=== PATIENT | female | born 1985 | race Caucasian/White ===

== ENCOUNTER 2019-10-01 05:13 | Inpatient (IN) | payer OTHER ==
[2019-10-01] MEDS ORDERED: Oxytocin/Lactated Ringers 20 UNIT/1,000 ML BAG ONE (05:20)
[2019-10-01] MEDS ORDERED: Nalbuphine 10 MG/ML Syringe IVPUSH PRN (05:34)
[2019-10-01] MEDS ORDERED: Sodium Chloride 0.9% 10 ML Syringe FLUSH PRN (05:34)
[2019-10-01] MEDS ORDERED: Oxytocin/Lactated Ringers 20 UNIT/1,000 ML BAG IV SCH (05:45)
[2019-10-01] MEDS ORDERED: Lactated Ringers 1,000 ML IV SCH (05:45)
--- NOTE | 2019-10-01 05:52 | PCM.LDHP ---
L&D History of Present Illness - General Date of Service: 10/01/19 Admit Problem/Dx: Patient Status Order with Admit Dx/Problem 10/01/19 05:34 Patient Status [ADT] Routine Admission Diagnosis/Problem Admission Diagnosis/Problem Source of Information: Patient History Limitations: Reports: No Limitations - History of Present Illness Introduction:: 34-year-old -0-0-4 ANGELA 10/15/2019 at gestational age of 38 weeks 0 days presents labor and delivery completely dilated. Patient delivered rapidly after admission to labor and delivery. I was present and delivered the patient. GBS -09/19/2019 03/29/2019 blood type O- antibody screen negative, hemoglobin/hematocrit 13.9 39.9 platelets 269,000. Rubella immune. Serology nonreactive. Urine culture mixed hallie. Hepatitis B surface antigen and HIV negative. GC chlamydia probe negative. 07/17/2019 hemoglobin/hematocrit 12.9/38.1 platelets 300,001-hour OB glucose screen 134 antibody screen negative D immunoglobulin given 07/17/2019. 09/17/2019 group B strep negative Improves with: Reports: None Worsens with: Reports: None Associated Symptoms: Reports: N - Related Data Allergies/Adverse Reactions: Allergies Allergy/AdvReac Type Severity Reaction Status Date / Time No Known Allergies Allergy Verified 10/01/19 05:34 Home Medications: Home Meds Pnv No.95/Ferrous Fum/Folic AC [ Tablet] 1 each PO DAILY 12/20/13 [History] Acetaminophen [Tylenol] 650 mg PO Q4H PRN tablet 03/22/18 [Rx] Ibuprofen [Motrin] 600 mg PO Q4H PRN tablet 03/22/18 [Rx] Past Medical History HEENT History: Reports: None Gastrointestinal History: Reports: GERD, Other (See Below) Other Gastrointestinal History: Heart burn with [employer] History: Reports: Endocrine/Metabolic History: Reports: Diabetes, Gestational - Infectious Disease History Infectious Disease History: Reports: Chicken Pox - Past Surgical History HEENT Surgical History: Reports: LASIK, Naso-Sinus Surgery, Other (See Below) Social & Family History - Family History Family Medical History: Noncontributory - Caffeine Use Caffeine Use: Reports: None H&P Review of Systems - Review of Systems: Review Of Systems: See Below General: Reports: No Symptoms HEENT: Reports: No Symptoms Pulmonary: Reports: No Symptoms Cardiovascular: Reports: No Symptoms Gastrointestinal: Reports: No Symptoms Genitourinary: Reports: No Symptoms Musculoskeletal: Reports: No Symptoms Skin: Reports: No Symptoms Psychiatric: Reports: No Symptoms Neurological: Reports: No Symptoms Hematologic/Lymphatic: Reports: No Symptoms Immunologic: Reports: No Symptoms L&D Exam - Exam Exam: See Below - Vital Signs Weight: 220 lb - OB Specific Fundal Height In cm: 38 Contraction Duration (sec): 60 Contraction Frequency (min): 2 Contraction Intensity: Strong Movement: Active Heart Tones: Present Heart Tones per Min: 140 Heart Rate (FHR) Variability: Moderate (6-25 bmp) Presentation: Vertex - Gutierrez Score Gutierrez Score Cervix Position: Anterior Gutierrez Score Consistency: Soft Gutierrez Score Effacement: >80% Gutierrez Score Dilation: > 5 cm Gutierrez Score 's Station: +1, +2 Gutierrez Score Total: 13 - Exam General: Alert, Oriented HEENT: Conjunctiva Clear, Mucosa Moist & [place], Pupils Equal Neck: Supple, Trachea Midline Lungs: Clear to Auscultation, Normal Respiratory Effort Cardiovascular: Regular Rate, Regular Rhythm GI/Abdominal Exam: Soft, Non-Tender Genitourinary: Normal external exam Extremities: Normal Inspection, Non-Tender, No Pedal Edema, Normal Capillary Refill Skin: Warm, Dry, Intact Psychiatric: Alert, Normal Affect, Normal Mood - Problem List (1) 38 weeks gestation of SNOMED Code(s): 23802057 ICD Code: Z3A.38 - 38 WEEKS GESTATION OF Status: Acute Current Visit: Yes (2) Encounter for full-term uncomplicated delivery SNOMED Code(s): 271039303 ICD Code: O80 - ENCOUNTER FOR FULL-TERM UNCOMPLICATED DELIVERY Status: Acute Current Visit: Yes Problem List Initiated/Reviewed/Updated: No Orders Last 24hrs: Active Orders 24 hr Category Date Time Status Patient Status [ADT] Routine ADT 10/01/19 05:34 Active Activity as Tolerated [RC] PFP Care 10/01/19 05:34 Active Communication Order [RC] ASDIRECTED Care 10/01/19 05:34 Active Heart Tones [RC] ASDIRECTED Care 10/01/19 05:34 Active Non Stress Test [RC] PER UNIT ROUTINE Care 10/01/19 05:34 Active Notify Provider [RC] PFP Care 10/01/19 05:34 Active Notify Provider [RC] PRN Care 10/01/19 05:34 Active Peripheral IV Care [RC] . DIRECTED Care 10/01/19 05:34 Active Vital Signs [RC] PER UNIT ROUTINE Care 10/01/19 05:34 Active RAPID PLASMA REAGIN,RPR [CHEM] Routine Lab 10/01/19 05:34 Ordered Lactated Ringers [Ringers, Lactated] 1,000 ml Med 10/01/19 05:45 Active IV ASDIRECTED Nalbuphine [Nubain] Med 10/01/19 05:34 Active 10 mg IVPUSH Q2H PRN Oxytocin/Lactated Ringers [Pitocin in LR 20 Units/1,000 Med 10/01/19 05:45 Active ML] 20 unit in 1,000 ml IV .CONTINUOUS Sodium Chloride 0.9% [Saline Flush] Med 10/01/19 05:34 Active 10 ml FLUSH ASDIRECTED PRN Electronic Heart Tones Ext w TOCO [WOMSER] Oth 10/01/19 05:34 Ordered Routine Electronic Heart Tones Internal [WOMSER] Per Unit Oth 10/01/19 05:34 Ordered Routine Peripheral IV Insertion Adult [OM.PC] Routine Oth 10/01/19 05:34 Ordered Resuscitation Status Routine Resus Stat 10/01/19 05:34 Ordered Medication Orders Lactated Ringer's (Ringers, Lactated) 1,000 mls @ 100 mls/hr IV ASDIRECTED FERNANDO Oxytocin/Lactated Ringer's (Pitocin In Lr 20 Units/1,000 Ml) 20 unit in 1,000 mls @ 100 mls/hr IV .CONTINUOUS FERNANDO Nalbuphine HCl (Nubain) 10 mg IVPUSH Q2H PRN PRN Reason: Pain Sodium Chloride (Saline Flush) 10 ml FLUSH ASDIRECTED PRN PRN Reason: Keep Vein Open Assessment/Plan Comment:: Patient admitted to labor and delivery at 0514 hrs. arrived at 0523 hrs. and patient delivered at 0525 hrs.
--- NOTE | 2019-10-01 05:59 | PCM.DEL ---
L & D Note - General Info Date of Service: 10/01/19 Mother's Due Date: 10/15/19 - Delivery Note Labor: Spontaneous Delivery Outcome: Livebirth (Male liveborn at 0525 hrs. on 10/01/2019 weighing 3620 g 8 pounds, Apgars 8/9 OA) Delivery Method: Spontaneous Vaginal Delivery-Single Delivery Mode: Spontaneous Presentation: Right Occiput Anterior (LIANNE) Nuchal Cord: None Prep: Povidone-Iodine (Betadine Anesthesia Type: None Episiotomy Type: None Laceration: None Placenta: Intact, Spontaneous (Spontaneously delivered at 0527 hrs. on 10/01/2019 examined intact) Cord: 3 Vessels Estimated Blood Loss: 250 Resuscitation Needed: No : Suctioned, Bulb Syringe, Stimulated, Warmed, [place] Used, Warmer Used Provider: León Regan Score 1 min: 8 Score 5 min: 9 - General Info Date of Service: 10/01/19 Functional Status: Reports: Pain Controlled - Review of Systems General: Reports: No Symptoms HEENT: Reports: No Symptoms Pulmonary: Reports: No Symptoms Cardiovascular: Reports: No Symptoms Gastrointestinal: Reports: No Symptoms Genitourinary: Reports: No Symptoms Musculoskeletal: Reports: No Symptoms Skin: Reports: No Symptoms Neurological: Reports: No Symptoms Psychiatric: Reports: No Symptoms - Patient Data Weight - Most Recent: 220 lb Med Orders - Current: Current Medications Lactated Ringer's (Ringers, Lactated) 1,000 mls @ 100 mls/hr IV ASDIRECTED FERNANDO Oxytocin/Lactated Ringer's (Pitocin In Lr 20 Units/1,000 Ml) 20 unit in 1,000 mls @ 100 mls/hr IV .CONTINUOUS FERNANDO Nalbuphine HCl (Nubain) 10 mg IVPUSH Q2H PRN PRN Reason: Pain Sodium Chloride (Saline Flush) 10 ml FLUSH ASDIRECTED PRN PRN Reason: Keep Vein Open Discontinued Medications Oxytocin/Lactated Ringer's (Pitocin In Lr 20 Units/1,000 Ml) Confirm Administered Dose 20 unit in 1,000 mls @ as directed .ROUTE .STK-MED ONE Stop: 10/01/19 05:21 - Exam General: Alert, Oriented HEENT: Pupils Equal, Mucous Membr. Moist/[place] Neck: Supple Lungs: Clear to Auscultation, Normal Respiratory Effort Cardiovascular: Regular Rate, Regular Rhythm GI/Abdominal Exam: Soft (Female) Exam: Normal External Exam Extremities: Normal Inspection, Non-Tender, No Pedal Edema, Normal Capillary Refill Skin: Warm, Dry, Intact Neurological: No New Focal Deficit Psy/Mental Status: Alert, Normal Affect, Normal Mood - Problem List & Annotations (1) 38 weeks gestation of SNOMED Code(s): 15109145 Code(s): Z3A.38 - 38 WEEKS GESTATION OF Status: Acute Current Visit: Yes (2) Encounter for full-term uncomplicated delivery SNOMED Code(s): 457281557 Code(s): O80 - ENCOUNTER FOR FULL-TERM UNCOMPLICATED DELIVERY Status: Acute Current Visit: Yes - Problem List Review Problem List Initiated/Reviewed/Updated: No - My Orders Last 24 Hours: My Active Orders 10/01/19 05:34 Patient Status [ADT] Routine Activity as Tolerated [RC] PFP Communication Order [RC] ASDIRECTED Heart Tones [RC] ASDIRECTED Non Stress Test [RC] PER UNIT ROUTINE Notify Provider [RC] PFP Notify Provider [RC] PRN Peripheral IV Care [RC] . DIRECTED Vital Signs [RC] PER UNIT ROUTINE RAPID PLASMA REAGIN,RPR [CHEM] Routine Nalbuphine [Nubain] 10 mg IVPUSH Q2H PRN Sodium Chloride 0.9% [Saline Flush] 10 ml FLUSH ASDIRECTED PRN Electronic Heart Tones Ext w TOCO [WOMSER] Routine Electronic Heart Tones Internal [WOMSER] Per Unit Routine Peripheral IV Insertion Adult [OM.PC] Routine Resuscitation Status Routine 10/01/19 05:45 Lactated Ringers [Ringers, Lactated] 1,000 ml IV ASDIRECTED Oxytocin/Lactated Ringers [Pitocin in LR 20 Units/1,000 ML] 20 unit in 1,000 ml IV .CONTINUOUS 10/01/19 05:46 CBC WITH AUTO DIFF [HEME] Routine 10/01/19 05:50 TYPE AND SCREEN [BBK] Routine - Plan Plan:: Patient admitted to labor and delivery at 0514 hrs. arrived at 0523 hrs. and patient delivered at 0525 hrs.
[2019-10-01] MEDS ORDERED: Docusate Sodium 100 MG Cap PO PRN (06:03)
[2019-10-01] MEDS ORDERED: Acetaminophen 325 MG Tab PO PRN (06:03)
[2019-10-01] MEDS ORDERED: Witch Hazel Medicated Pads 40/Jar TOP PRN (06:03)
[2019-10-01] MEDS: Ibuprofen 600 MG Tab PO PRN ×3 (08:44→21:10)
[2019-10-02] MEDS: Ibuprofen 600 MG Tab PO PRN (07:40)
[2019-10-02 08:27] VITALS: BP 115/70; PULSE 70
--- NOTE | 2019-10-02 10:43 | PCM.DCSUM1 ---
Discharge Summary - Hospital Course Free Text/Narrative:: [facility] L/D Delivery Note Patient Name: KEVIN OLVERA Date of : 89 Patient Status: Inpatient Attending Provider: León Regan Date: 10/01/19 05:56 Initialization Date: 10/01/19 05:56 L & D Note - General Info Date of Service: 10/01/19 Mother's Due Date: 10/15/19 - Delivery Note Labor: Spontaneous Delivery Outcome: Livebirth (Male liveborn at 0525 hrs. on 10/01/2019 weighing 3620 g 8 pounds, Apgars 8/9 OA) Delivery Method: Spontaneous Vaginal Delivery-Single Delivery Mode: Spontaneous Presentation: Right Occiput Anterior (LIANNE) Nuchal Cord: None Prep: Povidone-Iodine (Betadine Anesthesia Type: None Episiotomy Type: None Laceration: None Placenta: Intact, Spontaneous (Spontaneously delivered at 0527 hrs. on 10/01/2019 examined intact) Cord: 3 Vessels Estimated Blood Loss: 250 Resuscitation Needed: No [place]: Suctioned, Bulb Syringe, Stimulated, Warmed, [place] Used, Warmer Used Provider: León Regan Score 1 min: 8 Score 5 min: 9 - General Info Date of Service: 10/01/19 Functional Status: Reports: Pain Controlled - Review of Systems General: Reports: No Symptoms HEENT: Reports: No Symptoms Pulmonary: Reports: No Symptoms Cardiovascular: Reports: No Symptoms Gastrointestinal: Reports: No Symptoms Genitourinary: Reports: No Symptoms Musculoskeletal: Reports: No Symptoms Skin: Reports: No Symptoms Neurological: Reports: No Symptoms Psychiatric: Reports: No Symptoms - Patient Data Weight - Most Recent: 220 lb Med Orders - Current: Current Medications Lactated Ringer's (Ringers, Lactated) 1,000 mls @ 100 mls/hr IV ASDIRECTED FRENANDO Oxytocin/Lactated Ringer's (Pitocin In Lr 20 Units/1,000 Ml) 20 unit in 1,000 mls @ 100 mls/hr IV .CONTINUOUS FERNANDO Nalbuphine HCl (Nubain) 10 mg IVPUSH Q2H PRN PRN Reason: Pain Sodium Chloride (Saline Flush) 10 ml FLUSH ASDIRECTED PRN PRN Reason: Keep Vein Open Discontinued Medications Oxytocin/Lactated Ringer's (Pitocin In Lr 20 Units/1,000 Ml) Confirm Administered Dose 20 unit in 1,000 mls @ as directed .ROUTE .[facility] Stop: 10/01/19 05:21 - Exam General: Alert, Oriented HEENT: Pupils Equal, Mucous Membr. Moist/[place] Neck: Supple Lungs: Clear to Auscultation, Normal Respiratory Effort Cardiovascular: Regular Rate, Regular Rhythm GI/Abdominal Exam: Soft (Female) Exam: Normal External Exam Extremities: Normal Inspection, Non-Tender, No Pedal Edema, Normal Capillary Refill Skin: Warm, Dry, Intact Neurological: No New Focal Deficit Psy/Mental Status: Alert, Normal Affect, Normal Mood - Problem List & Annotations (1) 38 weeks gestation of SNOMED Code(s): 24181505 Code(s): Z3A.38 - 38 WEEKS GESTATION OF Status: Acute Current Visit: Yes (2) Encounter for full-term uncomplicated delivery SNOMED Code(s): 460305525 Code(s): O80 - ENCOUNTER FOR FULL-TERM UNCOMPLICATED DELIVERY Status: Acute Current Visit: Yes - Problem List Review Problem List Initiated/Reviewed/Updated: No - My Orders Last 24 Hours: My Active Orders 10/01/19 05:34 Patient Status [ADT] Routine Activity as Tolerated [RC] PFP Communication Order [RC] ASDIRECTED Heart Tones [RC] ASDIRECTED Non Stress Test [RC] PER UNIT ROUTINE Notify Provider [RC] PFP Notify Provider [RC] PRN Peripheral IV Care [RC] . DIRECTED Vital Signs [RC] PER UNIT ROUTINE RAPID PLASMA REAGIN,RPR [CHEM] Routine Nalbuphine [Nubain] 10 mg IVPUSH Q2H PRN Sodium Chloride 0.9% [Saline Flush] 10 ml FLUSH ASDIRECTED PRN Electronic Heart Tones Ext w TOCO [WOMSER] Routine Electronic Heart Tones Internal [WOMSER] Per Unit Routine Peripheral IV Insertion Adult [OM.PC] Routine Resuscitation Status Routine 10/01/19 05:45 Lactated Ringers [Ringers, Lactated] 1,000 ml IV ASDIRECTED Oxytocin/Lactated Ringers [Pitocin in LR 20 Units/1,000 ML] 20 unit in 1,000 ml IV .CONTINUOUS 10/01/19 05:46 CBC WITH AUTO DIFF [HEME] Routine 10/01/19 05:50 TYPE AND SCREEN [BBK] Routine - Plan Plan:: Patient admitted to labor and delivery at 0514 hrs. arrived at 0523 hrs. and patient delivered at 0525 hrs. HPI Initial Comments: [facility] L/[facility] Delivery Note Patient Name: KEVIN OLVERA Date of : 89 Patient Status: Inpatient Attending Provider: León Regan Date: 10/01/19 05:56 Initialization Date: 10/01/19 05:56 L & D Note - General Info Date of Service: 10/01/19 Mother's Due Date: 10/15/19 - Delivery Note Labor: Spontaneous Delivery Outcome: Livebirth (Male liveborn at 0525 hrs. on 10/01/2019 weighing 3620 g 8 pounds, Apgars 8/9 OA) Delivery Method: Spontaneous Vaginal Delivery-Single Infant Delivery Mode: Spontaneous Presentation: Right Occiput Anterior (LIANNE) Nuchal Cord: None Prep: Povidone-Iodine (Betadine Anesthesia Type: None Episiotomy Type: None Laceration: None Placenta: Intact, Spontaneous (Spontaneously delivered at 0527 hrs. on 10/01/2019 examined intact) Cord: 3 Vessels Estimated Blood Loss: 250 Resuscitation Needed: No : Suctioned, Bulb Syringe, Stimulated, Warmed, [place] Used, Warmer Used Provider: León Regan Score 1 min: 8 Score 5 min: 9 - General Info Date of Service: 10/01/19 Functional Status: Reports: Pain Controlled - Review of Systems General: Reports: No Symptoms HEENT: Reports: No Symptoms Pulmonary: Reports: No Symptoms Cardiovascular: Reports: No Symptoms Gastrointestinal: Reports: No Symptoms Genitourinary: Reports: No Symptoms Musculoskeletal: Reports: No Symptoms Skin: Reports: No Symptoms Neurological: Reports: No Symptoms Psychiatric: Reports: No Symptoms - Patient Data Weight - Most Recent: 220 lb Med Orders - Current: Current Medications Lactated Ringer's (Ringers, Lactated) 1,000 mls @ 100 mls/hr IV ASDIRECTED FERNANDO Oxytocin/Lactated Ringer's (Pitocin In Lr 20 Units/1,000 Ml) 20 unit in 1,000 mls @ 100 mls/hr IV .CONTINUOUS FERNANDO Nalbuphine HCl (Nubain) 10 mg IVPUSH Q2H PRN PRN Reason: Pain Sodium Chloride (Saline Flush) 10 ml FLUSH ASDIRECTED PRN PRN Reason: Keep Vein Open Discontinued Medications Oxytocin/Lactated Ringer's (Pitocin In Lr 20 Units/1,000 Ml) Confirm Administered Dose 20 unit in 1,000 mls @ as directed .ROUTE .[facility] Stop: 10/01/19 05:21 - Exam General: Alert, Oriented HEENT: Pupils Equal, Mucous Membr. Moist/[place] Neck: Supple Lungs: Clear to Auscultation, Normal Respiratory Effort Cardiovascular: Regular Rate, Regular Rhythm GI/Abdominal Exam: Soft (Female) Exam: Normal External Exam Extremities: Normal Inspection, Non-Tender, No Pedal Edema, Normal Capillary Refill Skin: Warm, Dry, Intact Neurological: No New Focal Deficit Psy/Mental Status: Alert, Normal Affect, Normal Mood - Problem List & Annotations (1) 38 weeks gestation of SNOMED Code(s): 09730217 Code(s): Z3A.38 - 38 WEEKS GESTATION OF Status: Acute Current Visit: Yes (2) Encounter for full-term uncomplicated delivery SNOMED Code(s): 200187464 Code(s): O80 - ENCOUNTER FOR FULL-TERM UNCOMPLICATED DELIVERY Status: Acute Current Visit: Yes - Problem List Review Problem List Initiated/Reviewed/Updated: No - My Orders Last 24 Hours: My Active Orders 10/01/19 05:34 Patient Status [ADT] Routine Activity as Tolerated [RC] PFP Communication Order [RC] ASDIRECTED Heart Tones [RC] ASDIRECTED Non Stress Test [RC] PER UNIT ROUTINE Notify Provider [RC] PFP Notify Provider [RC] PRN Peripheral IV Care [RC] . DIRECTED Vital Signs [RC] PER UNIT ROUTINE RAPID PLASMA REAGIN,RPR [CHEM] Routine Nalbuphine [Nubain] 10 mg IVPUSH Q2H PRN Sodium Chloride 0.9% [Saline Flush] 10 ml FLUSH ASDIRECTED PRN Electronic Heart Tones Ext w TOCO [WOMSER] Routine Electronic Heart Tones Internal [WOMSER] Per Unit Routine Peripheral IV Insertion Adult [OM.PC] Routine Resuscitation Status Routine 10/01/19 05:45 Lactated Ringers [Ringers, Lactated] 1,000 ml IV ASDIRECTED Oxytocin/Lactated Ringers [Pitocin in LR 20 Units/1,000 ML] 20 unit in 1,000 ml IV .CONTINUOUS 10/01/19 05:46 CBC WITH AUTO DIFF [HEME] Routine 10/01/19 05:50 TYPE AND SCREEN [BBK] Routine - Plan Plan:: Patient admitted to labor and delivery at 0514 hrs. arrived at 0523 hrs. and patient delivered at 0525 hrs. Brief History: [facility] . [facility]. [id number]. Date of : 89Patient Status: Inpatient. Attending Provider: León Reganount Number: [id number]. Date: 10/01/19 05:56Initialization Date: 10/01/19 05:56. L & D Note. - General Info. Date of Service: 10/01/19. Mother's Due Date: 10/15/19. - Delivery Note. Labor: Spontaneous. Delivery Outcome: Livebirth (Male liveborn at 0525 hrs. on 10/01/2019 weighing 3620 g 8 pounds, Apgars 8/9 OA). Delivery Method: Spontaneous Vaginal Delivery-Single. Delivery Mode: Spontaneous. Presentation: Right Occiput Anterior (LIANNE). Nuchal Cord: None. Prep: Povidone-Iodine (Betadine. Anesthesia Type: None. Episiotomy Type: None. Laceration: None. Placenta: Intact, Spontaneous (Spontaneously delivered at 0527 hrs. on 10/01/2019 examined intact). Cord: 3 Vessels. Estimated Blood Loss: 250. Resuscitation Needed: No. [place]: Suctioned, Bulb Syringe, Stimulated, Warmed, [place] Used, Warmer Used. Provider: León Regan. Score 1 min: 8. Score 5 min: 9. - General Info. Date of Service: 10/01/19. Functional Status: Reports: Pain Controlled. - Review of Systems. General: Reports: No Symptoms. HEENT: Reports: No Symptoms. Pulmonary: Reports: No Symptoms. Cardiovascular: Reports: No Symptoms. Gastrointestinal: Reports: No Symptoms. Genitourinary: Reports: No Symptoms. Musculoskeletal: Reports: No Symptoms. Skin: Reports: No Symptoms. Neurological: Reports: No Symptoms. Psychiatric: Reports: No Symptoms. - Patient Data. Weight - Most Recent: 220 lb. Med Orders - Current: Current Medications. Lactated Ringer's (Ringers, Lactated) 1,000 mls @ 100 mls/hr IV ASDIRECTED FERNANDO. Oxytocin/Lactated Ringer's (Pitocin In Lr 20 Units/1,000 Ml) 20 unit in 1,000 mls @ 100 mls/hr IV .CONTINUOUS FERNANDO. Nalbuphine HCl (Nubain) 10 mg IVPUSH Q2H PRN. PRN Reason: Pain. Sodium Chloride (Saline Flush) 10 ml FLUSH ASDIRECTED PRN. PRN Reason: Keep Vein Open. Discontinued Medications. Oxytocin/Lactated Ringer's (Pitocin In Lr 20 Units/1,000 Ml) Confirm Administered Dose 20 unit in 1,000 mls @ as directed .ROUTE .[facility]. Stop: 10/01/19 05:21. - Exam. General: Alert, Oriented. HEENT: Pupils Equal, Mucous Membr. Moist/[place]. Neck: Supple. Lungs: Clear to Auscultation, Normal Respiratory Effort. Cardiovascular: Regular Rate, Regular Rhythm. GI/Abdominal Exam: Soft. (Female) Exam: Normal External Exam. Extremities: Normal Inspection, Non-Tender, No Pedal Edema, Normal Capillary Refill. Skin: Warm, Dry, Intact. Neurological: No New Focal Deficit. Psy/Mental Status: Alert, Normal Affect, Normal Mood. - Problem List & Annotations. (1) 38 weeks gestation of . SNOMED Code(s): 07560867. Code(s): Z3A.38 - 38 WEEKS GESTATION OF Status: Acute Current Visit: Yes. (2) Encounter for full-term uncomplicated delivery. SNOMED Code(s): 006333771. Code(s): O80 - ENCOUNTER FOR FULL-TERM UNCOMPLICATED DELIVERY Status: Acute Current Visit: Yes. - Problem List Review. Problem List Initiated/Reviewed/Updated: No. - My Orders. Last 24 Hours: My Active Orders. 10/01/19 05:34. Patient Status [ADT] Routine. Activity as Tolerated [RC] PFP. Communication Order [RC] ASDIRECTED. Heart Tones [RC] ASDIRECTED. Non Stress Test [RC] PER UNIT ROUTINE. Notify Provider [RC] PFP. Notify Provider [RC] PRN. Peripheral IV Care [RC] . DIRECTED. Vital Signs [RC] PER UNIT ROUTINE. RAPID PLASMA REAGIN,RPR [CHEM] Routine. Nalbuphine [Nubain] 10 mg IVPUSH Q2H PRN. Sodium Chloride 0.9% [Saline Flush] 10 ml FLUSH ASDIRECTED PRN. Electronic Heart Tones Ext w TOCO [WOMSER] Routine. Electronic Heart Tones Internal [WOMSER] Per Unit Routine. Peripheral IV Insertion Adult [OM.PC] Routine. Resuscitation Status Routine. 10/01/19 05:45. Lactated Ringers [Ringers, Lactated] 1,000 ml IV ASDIRECTED. Oxytocin/Lactated Ringers [Pitocin in LR 20 Units/1,000 ML] 20 unit in 1,000 ml IV .CONTINUOUS. 10/01/19 05:46. CBC WITH AUTO DIFF [HEME] Routine. 10/01/19 05:50. TYPE AND SCREEN [BBK] Routine. - Plan. Plan:: Patient admitted to labor and delivery at 0514 hrs. arrived at 0523 hrs. and patient delivered at 0525 hrs. Diagnosis: Stroke: No - Discharge Data Discharge Date: 10/02/19 Discharge Disposition: Home, Self-Care 01 Condition: Good - Referral to Home Health Primary Care Physician: Marjorie Murcia NP - Discharge Diagnosis/Problem(s) (1) 38 weeks gestation of SNOMED Code(s): 99763717 ICD Code: Z3A.38 - 38 WEEKS GESTATION OF Status: Acute Current Visit: Yes (2) Encounter for full-term uncomplicated delivery SNOMED Code(s): 126547751 ICD Code: O80 - ENCOUNTER FOR FULL-TERM UNCOMPLICATED DELIVERY Status: Acute Current Visit: Yes - Patient Summary/Data Complications: none Consults: none Hospital Course: uneventful - Patient Instructions Diet: Usual Diet as Tolerated Driving: Do Not Drive (2 days) Showering/Bathing: May Shower Notify Provider of: Fever, Increased Pain, Swelling and Redness, Drainage, Nausea and/or Vomiting - Discharge Plan *PRESCRIPTION DRUG MONITORING PROGRAM REVIEWED*: Not Applicable *COPY OF PRESCRIPTION DRUG MONITORING REPORT IN PATIENT TONI: Not Applicable Home Medications: Home Meds Pnv No.95/Ferrous Fum/Folic AC [ Tablet] 1 each PO DAILY 12/20/13 [History] Acetaminophen [Tylenol] 650 mg PO Q6H PRN tablet 10/02/19 [Rx] Docusate Sodium [Colace] 100 mg PO BID PRN cap 10/02/19 [Rx] Ibuprofen [Motrin] 600 mg PO Q6H PRN tablet 10/02/19 [Rx] witcari Capo [Tucks] 1 pad TOP ASDIRECTED PRN pad 10/02/19 [Rx] Patient Handouts: Circumcision, Infant, Care After, [id number] Referrals: Se Villegas MD [Physician] - (2 weeks) - Discharge Summary/Plan Comment DC Time >30 min.: No - Patient Data Vitals - Most Recent: Last Vital Signs Temp 97.9 F 10/02/19 08:05 Pulse 70 10/02/19 08:05 Resp 14 10/02/19 08:05 BP 115/70 10/02/19 08:05 Pulse Ox 97 10/02/19 08:05 Weight - Most Recent: 220 lb Lab Results - Last 24 hrs: Laboratory Results - last 24 hr 10/01/19 10/02/19 Range/Units 05:45 06:28 WBC 8.21 (3.98-10.04) K/mm3 RBC 4.49 (3.98-5.22) M/mm3 Hgb 12.4 (11.2-15.7) gm/dl Hct 37.8 (34.1-44.9) % MCV 84.2 (79.4-94.8) fl MCH 27.6 (25.6-32.2) pg MCHC 32.8 (32.2-35.5) g/dl RDW Std Deviation 39.9 (36.4-46.3) fL Plt Count 207 (182-369) K/mm3 MPV 10.0 (9.4-12.3) fl Neut % (Auto) 59.4 (34.0-71.1) % Lymph % (Auto) 31.8 (19.3-51.7) % [place] % (Auto) 6.8 (4.7-12.5) % Eos % (Auto) 1.6 (0.7-5.8) Baso % (Auto) 0.2 (0.1-1.2) % Neut # (Auto) 4.87 (1.56-6.13) K/mm3 Lymph # (Auto) 2.61 (1.18-3.74) K/mm3 [place] # (Auto) 0.56 H (0.24-0.36) K/mm3 Eos # (Auto) 0.13 (0.04-0.36) K/mm3 Baso # (Auto) 0.02 (0.01-0.08) K/mm3 RPR Non-reactive (NONREACTIVE) Med Orders - Current: Current Medications Acetaminophen (Tylenol) 650 mg PO Q4H PRN PRN Reason: mild pain or fever Docusate Sodium (Colace) 100 mg PO BID PRN PRN Reason: Constipation Ibuprofen (Motrin) 600 mg PO Q4H PRN PRN Reason: Mild pain or fever Last Admin: 10/02/19 07:40 Dose: 600 mg [facility]ed [facility]: [facility]) 1 pad TOP ASDIRECTED PRN PRN Reason: Perineal Comfort Measure Discontinued Medications Oxytocin/Lactated Ringer's (Pitocin In Lr 20 Units/1,000 Ml) Confirm Administered Dose 20 unit in 1,000 mls @ as directed .ROUTE .[facility] Stop: 10/01/19 05:21 Last Admin: 10/01/19 05:27 Dose: 999 mls/hr Documented by: Lactated Ringer's (Ringers, Lactated) 1,000 mls @ 100 mls/hr IV ASDIRECTED FERNANDO Oxytocin/Lactated Ringer's (Pitocin In Lr 20 Units/1,000 Ml) 20 unit in 1,000 mls @ 100 mls/hr IV .CONTINUOUS FERNANDO Nalbuphine HCl (Nubain) 10 mg IVPUSH Q2H PRN PRN Reason: Pain Sodium Chloride (Saline Flush) 10 ml FLUSH ASDIRECTED PRN PRN Reason: Keep Vein Open
== END 2019-10-02 11:10 | disposition home or self-care (01) | DRG 807 ==
LOC: JD.OBCHECK 05:13 → JD.OB 05:13 → JD.OBCHECK 05:33 → JD.OB 05:34 → OBSVTOIN 05:35 → JD.OB 05:36
PROVIDERS: ADMIT Obstetrics & Gynecology; ATTEND Obstetrics & Gynecology
PROC: 10E0XZZ Delivery of Products of Conception, External Approach (ICD-10-PCS; principal; 2019-10-01)
DX: O80 Encounter for full-term uncomplicated delivery (principal); Z37.0 Single live birth; Z3A.38 38 weeks gestation of pregnancy
CPT/HCPCS: 36415; 59025; 59409; 85025; 86592; 86850; 86900; 86901; A9270-GY; J2590

== ENCOUNTER 2022-09-23 05:34 | Inpatient (IN) | payer BC ==
[~2022-09-23 05:34] MED LIST: Ropivacaine 0.2% PF 2 MG/ML 20 ML SDV ONE
[2022-09-23] MEDS ORDERED: Nalbuphine 10 MG/0.5 ML Syringe IVPUSH PRN ×2 (05:47→09:17)
[2022-09-23] MEDS ORDERED: Sodium Chloride 0.9% 10 ML Syringe FLUSH PRN (05:47)
[2022-09-23] MEDS ORDERED: Penicillin G Potassium 5 MILLUNITS in Sodium Chloride 0.9% 100 ML IV ONE (06:00)
[2022-09-23] MEDS ORDERED: Lactated Ringers 1,000 ML IV SCH (06:00)
[2022-09-23] MEDS ORDERED: metFORMIN 500 MG Tab PO SCH (07:00)
[2022-09-23] MEDS ORDERED: fentaNYL 100 MCG/2 ML SDV EPIDUR PRN (07:24)
[2022-09-23] MEDS ORDERED: diphenhydrAMINE 50 MG/ML SDV IVPUSH PRN (07:24)
[2022-09-23] MEDS ORDERED: Bupivacaine/fentaNYL/NS 100 ML Bag EPIDUR PRN (07:24)
[2022-09-23] MEDS ORDERED: ePHEDrine 50 MG/ML SDV IVPUSH PRN (07:24)
[2022-09-23] MEDS ORDERED: Oxytocin/Lactated Ringers 10 UNIT/1,000 ML BAG IV SCH ×4 (09:00→09:30)
[2022-09-23] MEDS ORDERED: Penicillin G Potassium 2.5 MILLUNITS in Sodium Chloride 0.9% 100 ML IV SCH ×4 (10:00)
[2022-09-23] MEDS ORDERED: Acetaminophen 325 MG Tab PO PRN (11:16)
[2022-09-23] MEDS ORDERED: Witch Hazel Medicated Pads 40/Jar TOP PRN (11:16)
[2022-09-23] MEDS ORDERED: Benzocaine/Menthol 20%-0.5% Spray 78 GM Cannister TOP PRN (11:16)
[2022-09-23] MEDS ORDERED: Docusate Sodium 100 MG Cap PO PRN (11:16)
[2022-09-23] MEDS: Sodium Chloride 0.9% 10 ML Syringe FLUSH SCH (11:27)
[2022-09-23] MEDS: Ibuprofen 600 MG Tab PO PRN ×2 (15:23→19:36)
[2022-09-24] MEDS: Ibuprofen 600 MG Tab PO PRN ×3 (02:53→20:51)
[2022-09-24] MEDS: Sodium Chloride 0.9% 10 ML Syringe FLUSH SCH ×2 (02:56→09:54)
[2022-09-24] MEDS: Prenatal Multivitamin with Calcium/Folic Acid/Iron Tab PO SCH (10:00)
[2022-09-25] MEDS: Sodium Chloride 0.9% 10 ML Syringe FLUSH SCH ×2 (04:28→11:08)
[2022-09-25 10:58] VITALS: BP 147/88; PULSE 68
[2022-09-25] MEDS: Prenatal Multivitamin with Calcium/Folic Acid/Iron Tab PO SCH (11:09)
== END 2022-09-25 10:49 | disposition home or self-care (01) | DRG 560 ==
LOC: JD.US 05:34 → JD.OB 05:37 → JD.US 07:08 → OBSVTOIN 08:59 → JD.OB 09:00
PROVIDERS: ADMIT Family Medicine; ATTEND Family Medicine
PROC: 10E0XZZ Delivery of Products of Conception, External Approach (ICD-10-PCS; principal; 2022-09-23)
PROC: 3E0R3BZ Introduction of Anesthetic Agent into Spinal Canal, Percutaneous Approach (ICD-10-PCS; 2022-09-23)
PROC: 00HU33Z Insertion of Infusion Device into Spinal Canal, Percutaneous Approach (ICD-10-PCS; 2022-09-23)
PROC: 3E0334Z Introduction of Serum, Toxoid and Vaccine into Peripheral Vein, Percutaneous Approach (ICD-10-PCS; 2022-09-23)
DX: O24.420 Gestational diabetes mellitus in childbirth, diet controlled (principal); O99.824 Streptococcus B carrier state complicating childbirth; O26.893 Other specified pregnancy related conditions, third trimester; O42.02 Full-term premature rupture of membranes, onset of labor within 24 hours of rupture; Z67.11 Type A blood, Rh negative; Z3A.38 38 weeks gestation of pregnancy; Z37.0 Single live birth; Z79.84 Long term (current) use of oral hypoglycemic drugs
CPT/HCPCS: 36415; 51702; 59025; 59409; 82947; 85461; 86592; 86850; 86900; 86901; A9270-GY; J2540; J2590; J2790; J2795; J3490; J7120